=== PATIENT | female | born 1945 | race Caucasian/White ===

== ENCOUNTER 2016-06-29 12:13 | Emergency (ER) | payer BC, MEDICARE ==
--- NOTE | 2016-06-29 12:50 | Emergency Department Record ---
History of Present Illness - General Chief complaint: Facial Swelling Stated complaint: TONGUE SWOLLEN Time Seen by Provider: 06/29/16 12:47 Source: Patient Mode of Arrival: Ambulatory Limitations: No limitations - History of Present Illness Initial Comments: 70 yo female presents to ED with a CC of swelling and tingling to the right side of her tongue that began 3 hours ago. Patient denies any trauma to the tongue, denies fevers, chills, or recent illness. Patient denies any new medications, wheezing, or rash. Patient was concerned that she may have a "strep infection". Onset/Timin -: Hour(s) Exposure: Unknown Symptoms: Other Severity: Mild Previous Allergy History: None - Related Data Home Medications Medication Instructions Recorded Confirmed Last Taken Bupropion HCl [Bupropion HCl Sr] 150 mg PO DAILY 06/29/16 06/29/16 06/29/16 Cholecalciferol (Vitamin D3) 50,000 unit PO WEEKLY 06/29/16 06/29/16 Unknown [Vitamin D3] Estradiol [Estradiol] 1 tab PO DAILY 06/29/16 06/29/16 06/29/16 Levothyroxine Sodium 50 mcg PO DAILY 06/29/16 06/29/16 06/29/16 Lisinopril [Zestril] 20 mg PO DAILY 06/29/16 06/29/16 06/29/16 Previous Rx's Medication Instructions Recorded Cephalexin [Keflex] 10 ml PO TID #210 ml 06/29/16 Allergies Allergy/AdvReac Type Severity Reaction Status Date / Time Iodinated Contrast Media - Allergy Severe RASH Verified 06/29/16 12:31 Oral and shellfish derived Allergy Severe RASH Verified 06/29/16 12:31 Sulfa (Sulfonamide Allergy Severe RASH Verified 06/29/16 12:31 Antibiotics) Travel Screening - Travel/Exposure Within Last 30 Days Have you traveled within the last 30 days?: No Review of Systems Constitutional: Denies: Chills, Fever, Malaise, Night sweats Eyes: Denies: Eye discharge, Eye pain ENT: Reports: Other ("tongue swelling"). Denies: Congestion, Ear pain, Epistaxis Respiratory: Denies: Cough, Dyspnea Cardiovascular: Denies: Chest pain, Dyspnea on exertion Endocrine: Denies: Fatigue, Heat or cold intolerance Gastrointestinal: Denies: Abdominal pain, Nausea, Vomiting Genitourinary: Denies: Dysuria, Frequency, Hematuria, Incontinence Musculoskeletal: Denies: Arthralgia, Back pain, Gout, Joint swelling Skin: Denies: Bruising, Change in color Neurological: Denies: Abnormal gait, Confusion, Headache, Seizure Psychiatric: Denies: Anxiety Hematological/Lymphatic: Denies: Anemia, Blood Clots Past Medical History - SOCIAL HISTORY Smoking Status: Never smoker Alcohol Use: Occassional Drug Use: None - RESPIRATORY Hx Respiratory Disorders: Yes Hx Asthma: Yes - CARDIOVASCULAR Hx Cardio Disorders: Yes Hx Hypertension: Yes - NEURO Hx Neuro Disorders: No - GI Hx GI Disorders: No - Hx Genitourinary Disorders: No - ENDOCRINE Hx Endocrine Disorders: Yes Hx Thyroid Disease: Yes - MUSCULOSKELETAL Hx Musculoskeletal Disorders: No - PSYCH Hx Psych Problems: Yes Hx Depression: Yes - HEMATOLOGY/ONCOLOGY Hx Hematology/Oncology Disorders: Yes Hx Cancer: Yes (sarcoma, breast) Hx Chemotherapy: No Hx Radiation Therapy: No Family Medical History Any Significant Family History?: No Physical Exam - General General Appearance: Alert, Oriented x3, Cooperative, No acute distress Limitations: No limitations - Head Head exam: Atraumatic, Normocephalic, Normal inspection Head exam detail: negative: Abrasion, Contusion, Grewal's sign, General tenderness, Hematoma, Laceration - Eye Eye exam: Normal appearance. negative: Conjunctival injection, Periorbital swelling, Periorbital tenderness, Scleral icterus - ENT ENT exam: Mucous membranes moist, Normal orophraynx Ear exam: negative: Auricular hematoma, Auricular trauma Nasal Exam: negative: Active bleeding, Discharge, Dried blood, Foreign body Mouth exam: Other (Mild erythema to the right inferior-lateral aspect of the tongue, no swelling present, no lesions present, no signs of trauma present. No submandibular swelling present, no evidence for saul's angina or angioedema on examination.). negative: Drooling, Laceration, Muffled voice, Tongue elevation Throat exam: negative: Tonsillar erythema, Tonsillomegaly, Tonsillar exudate, R peritonsillar mass, L peritonsillar mass - Neck Neck exam: Normal inspection. negative: Meningismus, Tenderness - Respiratory Respiratory exam: Normal lung sounds bilaterally. negative: Rales, Respiratory distress, Rhonchi, Stridor - Cardiovascular Cardiovascular Exam: Regular rate, Normal rhythm, Normal heart sounds - GI/Abdominal GI/Abdominal exam: Soft. negative: Rebound, Rigid, Tenderness - Rectal Rectal exam: Deferred - exam: Deferred - Back Back exam: Reports: Normal inspection. Denies: CVA tenderness (R), CVA tenderness (L) - Neurological Neurological exam: Alert, Normal gait, Oriented X3 - Psychiatric Psychiatric exam: Normal affect, Normal mood - Skin Skin exam: Normal color. negative: Abrasion Type of lesion: negative: abrasion Course Vital Signs 06/29/16 12:25 Temperature 98.2 F Pulse Rate 92 H Respiratory 20 Rate Blood Pressure 141/83 Pulse Ox 96 - Reevaluation(s) Reevaluation #1: 06/29/16 12:56 Patient has no clinical evidence for angioedema, allergic reaction, or saul's angina on examination. Will treat with liquid Keflex for possible infection, otherwise patient is well appearing and stable for discharge at this time. Disposition Disposition: Discharge Clinical Impression: Tongue lesion Disposition: Home, Self-Care Condition: (2) Stable Instructions: Canker Sores (ED) Additional Instructions: Return to ED if your symptoms worsen or if you have any concerns. keflex as directed. Follow-up with your family doctor in 3-5 days as directed. Prescriptions: Cephalexin [Keflex] 10 ml PO TID #210 ml Forms: Patient Portal Access Time of Disposition: 12:50
== END 2016-06-29 13:00 | disposition home or self-care (01) ==
LOC: ER 12:13
DX: K14.8 Other diseases of tongue (principal)
CPT/HCPCS: 99282